=== PATIENT | female | born 1945 | race Hispanic/Latino ===

== ENCOUNTER 2017-09-25 23:12 | Emergency (ER) | payer MEDICARE, OTHER ==
[2017-09-25] MEDS ORDERED: methylPREDNISolone Sod Succ/PF 125 MG/2 ML VIAL ONE (23:26)
[2017-09-25] MEDS ORDERED: Magnesium 2 GM/NS 0.9% 100 ML 2 GM in Premix Bag 1 BAG IVPB SCH (23:30)
[2017-09-25] MEDS ORDERED: Albuterol Sulfate 2.5 mg/0.5 ml Neb ONE (23:36)
[2017-09-25] MEDS ORDERED: Albuterol Sulfate 2.5 mg/3 ml Neb ONE (23:36)
[2017-09-25 23:40] LABS: #Eosinphils 0.2 thou/uL (0.0-0.7); #Lymphocytes 1.8 thou/uL (1.20-3.40); #Monocytes 0.9 thou/uL (0.11-0.59); #Neutrophils 8.1 thou/uL (1.40-6.50); %Basophils 0.2 % (0.0-1.0); %Lymphocytes 16.4 % (21.0-51.0); %Monocytes 7.8 % (0.0-10.0); %Neutrophils 73.5 % (42.0-75.0); Hemoglobin 10.1 g/dL (12.0-16.0); Mean Corpuscular HGB CONC 31.4 g/dL (32.0-36.0); Mean Corpuscular Hemoglobin 24.3 pg (27.0-31.0); Mean Corpuscular Volume 77.2 fl (81.0-99.0); Platelet Count 235 thou/uL (130-400); RBC Distribution Width 16.2 % (11.5-14.5); Red Blood Cell (RBC) Count 4.16 mill/uL (4.20-5.40); White Blood Cell (WBC) Count 11.1 thou/uL (4.8-10.8)
--- NOTE | 2017-09-25 23:49 | RAD ---
PORTABLE CHEST: 09/25/2017 PROVIDED CLINICAL HISTORY: Shortness of breath. COMPARISON: 10/18/2013 FINDINGS: Evaluation is limited by patient body habitus. The cardiac silhouette appears enlarged. Vascular ca lcification involves the aortic arch. There is prominence of the pulmonary vasculature and pulmonary interstitium. No focal consolidation, pleural fluid, or pneumothorax apparent. IMPRESSION: Cardiomegaly and findings suggesting congestive failure. POS: LEFTY
[2017-09-26 00:05] LABS: ALT (SGPT) 13 U/L (8-55); AST (SGOT) 14 U/L (5-34); Albumin 3.6 g/dL (3.4-4.8); Alkaline Phosphatase 157 U/L (40-150); Anion Gap 13 mmol/L (10-20); BUN (Urea Nitrogen) 19 mg/dL (9.8-20.1); Bilirubin, Total 0.2 mg/dL (0.2-1.2); Calc. Creatinine Clearance 0 mL/min (70-130); Calcium 8.9 mg/dL (7.8-10.44); Carbon Dioxide 26 mmol/L (23-31); Chloride 107 mmol/L (98-107); Estimated GFR-MDRD 65; Glucose 213 mg/dL (83-110); Lipase 40 U/L (8-78); Potassium 4.2 mmol/L (3.5-5.1); Protein, Total 7.6 g/dL (6.0-8.3); Sodium 142 mmol/L (136-145)
[2017-09-26 00:09] LABS: Troponin I 0.011 ng/mL (< 0.028)
[2017-09-26 00:19] LABS: CK (CPK) 161 U/L (29-168)
[2017-09-26 00:38] LABS: Base Excess-Venous 0.1 mmol/L (0 (+/- 2.5)); Bicarbonate (HCO3v) 25.1 mmol/L (1.0-85.0); CO2 Tension (PvCO2) 41.4 mmHg (41.0-51.0); Calcium, Ionized 1.12 mmol/L (1.12-1.32); Hemoglobin - Calc 12.3 g/dL (12.0-18.0); O2 Tension (PvO2) 167.6 mmHg (35.0-45.0); Potassium 4.9 mmol/L (3.4-4.7); T. Carbon Dioxide 26.4 mmol/L (1.0-85.0); pH (Venous) 7.391 (7.35-7.45); vO2 Saturation-calc 99.5 % (94-98)
[2017-09-26 02:18] LABS: Bilirubin Negative (Negative); Blood, Urine Negative (Negative); Clarity CLEAR (Clear); Glucose, Urine (Dipstick) Negative (Negative); Leukocyte Moderate (Negative); Nitrite Negative (Negative); Protein, Urine (Dipstick) 30 mg/dL (Neg-Trace); Urobilinogen 0.2 mg/dL (0.2-1.0); pH, Urine 5.5 (5.0-9.0)
[2017-09-26 02:20] LABS: Bacteria/HPF None Seen HPF (None Seen); Hyaline Casts/LPF 0-3 HYALINE CAST LPF (0-3 Hyaline); Pathc Cast-AUWi Flag 0.72 (0-2.49); RBC/HPF 0-3 HPF (0-3); WBC/HPF 21-50 HPF (0-3)
[2017-09-26 02:25] LABS: Specific Gravity, Urine 1.057 (1.002-1.036)
--- NOTE | 2017-09-26 11:53 | CT ---
PRELIMINARY REPORT/[facility]/EMERGENTY AFTER-HOURS PROCEDURE CT Angiography Chest With Intravenous Contrast CLINICAL HISTORY: 72 years old, female; Signs and symptoms; Shortness of breath; Patient HX: 72f reports SHORTNESS OF B REATH worsening today with cough. She was at her nh and felt worse SOB, called ems. Liliya en route. Reports that she was recently released for copd. TECHNIQUE: Axial computed tomographic angiography images of the chest with intravenous contrast using pulmonary embolism protocol. MIP reconstructed images were created and reviewed. Coronal reformatted images wer e created and reviewed. COMPARISON: No relevant prior studies available. FINDINGS: This exam is limited for the diagnosis of pulmonary emboli. The majority of the contrast has already passed through the pulmonary vasculature into the aorta. Pulmonary arteries: Unremarkable. No pulmonary embolism. Aorta: No acute findings. Incidentally noted is a bovine arch. No thoracic aortic aneurysm or dissect ion. Lungs: Possible calcified granuloma or scarring in the posterior left upper lobe. No mass. Pleural space: Unremarkable. No significant effusion. No pneumothorax. Heart: Unremarkable. No cardiomegaly. No significant pericardial effusion. No evidence of RV dysfunct ion. Bones/joints: No acute fracture. No dislocation. Soft tissues: Unremarkable. Lymph nodes: Calcified lymph nodes in the mediastinum and francisco javier may be due to prior granulomatous disease or treated lymphoma. Liver: There is diffuse fatty infiltration of the liver. No masses. IMPRESSION: No acute findings seen on limited exam. Evidence of prior granulomatous disease. Fatty liver. Thank you for allowing us to participate in the care of your patient. Dictated and Authenticated by: Reynold Stevens MD 09/26/2017 1:31 AM Central Time ([place] & [place]) FINAL REPORT CT ANGIOGRAM OF THE CHEST: Date: 09/26/17 HISTORY: Worsening shortness of breath. Cough. COMPARISON: 10/18/13. TECHNIQUE: CT angiogram of the chest is performed in the axial plane. Three-dimensional reformatted images are s ubmitted for interpretation. FINDINGS: Limited evaluation of the pulmonary arterial system due to poor timing of contrast bolus. No obvious pulmonary artery embolism in the central aspect. Evaluation of the segmental and subsegmental arterie s limited. Incidental hepatomegaly is noted. POS: [facility]
== END 2017-09-26 03:25 | disposition short-term general hospital (02) ==
LOC: ERS 23:12
DX: J44.1 Chronic obstructive pulmonary disease with (acute) exacerbation (principal); I10 Essential (primary) hypertension; E11.9 Type 2 diabetes mellitus without complications; I25.10 Atherosclerotic heart disease of native coronary artery without angina pectoris; E78.00 Pure hypercholesterolemia, unspecified; I48.91 Unspecified atrial fibrillation; F32.9 Major depressive disorder, single episode, unspecified; Z79.84 Long term (current) use of oral hypoglycemic drugs; Z79.899 Other long term (current) drug therapy
CPT/HCPCS: 36415; 71045; 71275; 80053; 81003; 81015; 82330; 82435; 82553; 82803; 83690; 83880; 84132; 84295; 84443; 84484; 85014; 85025; 85379; 93005; 94640; 94644; 96365; 96366; 96374; J2930; J3475; J7611; J7620

== ENCOUNTER 2017-11-04 13:06 | Inpatient (IN) | payer MEDICARE, OTHER ==
[2017-11-04] MEDS ORDERED: Furosemide 40 MG/4 ML VIAL ONE (13:42)
[2017-11-04] MEDS ORDERED: Dexamethasone 4 mg/ml Vial ONE ×2 (13:42→13:58)
[2017-11-04 13:56] LABS: Actual Bicarbonate (HCO3a) 32.7 mEq/L (22-28); Base Excess (BEa) 3.7 mEq/L (-2.0 to +3.0); CO2 Tension 78.9 mmHg (35.0-45.0); Hematocrit-ABG 38.4 % (36.0-47.0); O2 Tension (PaO2) 64.8 mmHg (> 70.0); pH, Arterial 7.24 (7.35-7.45)
[2017-11-04 13:57] LABS: ALV-art Gradient 121.775 (0-20); Analyzer IN Cardio ER; Calcium, Ionized 1.1 mmol/L (1.12-1.30); Puncture Site RBRACH
[2017-11-04] MEDS ORDERED: Albuterol Sulfate 2.5 mg/0.5 ml Neb ONE (13:58)
[2017-11-04] MEDS ORDERED: Magnesium 2 GM/NS 0.9% 100 ML 2 GM in Sodium Chloride 0.9% 100 ML IVPB SCH (14:00)
[2017-11-04] MEDS ORDERED: Magnesium 2 GM/NS 0.9% 100 ML 2 GM in Premix Bag 1 BAG IVPB SCH (14:00)
[2017-11-04] MEDS ORDERED: Magnesium Sulfate 2 GM in Sodium Chloride 0.9% 100 ML IVPB SCH (14:00)
[2017-11-04 14:27] LABS: #Eosinphils 0.1 thou/uL (0.0-0.7); #Lymphocytes 1.4 thou/uL (1.20-3.40); #Monocytes 0.9 thou/uL (0.11-0.59); #Neutrophils 14.2 thou/uL (1.40-6.50); %Basophils 0.1 % (0.0-1.0); %Eosinophils 0.5 % (0.0-10.0); %Lymphocytes 8.6 % (21.0-51.0); %Monocytes 5.3 % (0.0-10.0); %Neutrophils 85.6 % (42.0-75.0); Hemoglobin 10.4 g/dL (12.0-16.0); Mean Corpuscular HGB CONC 29.7 g/dL (32.0-36.0); Mean Corpuscular Volume 80.6 fL (78.0-98.0); Mean Platelet Volume 7.5 fL (7.4-10.4); Platelet Count 290 thou/uL (130-400); RBC Distribution Width 19.3 % (11.5-14.5); Red Blood Cell (RBC) Count 4.33 mill/uL (4.20-5.40); White Blood Cell (WBC) Count 16.6 thou/uL (4.8-10.8)
[2017-11-04 14:40] LABS: Anisocytosis MODERATE=16-30 cells (100X) (0-5/hpf); Hypochromia SLIGHT = 6-15 cells (100X) (0-5/hpf); MDiff Complete? YES; Ovalocytes SLIGHT = 2-5 cells (100X) (0-1/hpf); PLT Morphology Comment Appears Adequate; Polychromasia MODERATE = 3-4 cells (100X) (0-2/hpf)
[2017-11-04 14:46] LABS: ALT (SGPT) 14 U/L (8-55); AST (SGOT) 20 U/L (5-34); Albumin 3.9 g/dL (3.4-4.8); Alkaline Phosphatase 114 U/L (40-150); Anion Gap 13 mmol/L (10-20); BUN (Urea Nitrogen) 18 mg/dL (9.8-20.1); Bilirubin, Total 0.3 mg/dL (0.2-1.2); CK (CPK) 102 U/L (29-168); Calc. Creatinine Clearance 0 mL/min (70-130); Carbon Dioxide 30 mmol/L (23-31); Chloride 99 mmol/L (98-107); Estimated GFR-MDRD 53; Globulin 3.8 g/dL (2.4-3.5); Glucose 201 mg/dL (83-110); Lipase 20 U/L (8-78); Protein, Total 7.7 g/dL (6.0-8.3); Sodium 137 mmol/L (136-145)
[2017-11-04 14:49] LABS: Troponin I 0.022 ng/mL (< 0.028)
--- NOTE | 2017-11-04 15:02 | RAD ---
PORTABLE CHEST: Indications: Dyspnea. Comparison: 09-25-17 FINDINGS: Limited exam due to exposure and positioning. Overlying soft tissue attenuation obscures the left kassidy g base. There is cardiomegaly and vascular congestion with evidence of interstitial edema. IMPRESSION: Very limited exam. Congestive changes are noted as described. POS: LEFTY
[2017-11-04 15:27] LABS: Bilirubin Negative (Negative); Blood, Urine Small (Negative); Clarity CLOUDY (Clear); Glucose, Urine (Dipstick) Negative (Negative); Leukocyte Negative (Negative); Nitrite Negative (Negative); Protein, Urine (Dipstick) 100 mg/dL (Neg-Trace); Specific Gravity, Urine 1.018 (1.002-1.036); Urobilinogen 0.2 mg/dL (0.2-1.0)
[2017-11-04 15:28] LABS: Bacteria/HPF Rare-Few HPF (None Seen); Pathc Cast-AUWi Flag 2.18 (0-2.49); RBC/HPF 0-3 HPF (0-3); Yeast-AUWi Flag 15.2 (0-25.0)
[2017-11-04 15:42] LABS: Crystals/HPF 2+ AMORPH URATES HPF (Negative); Hyaline Casts/LPF 7-10 HYALINE CAST LPF (0-3 Hyaline); Other Casts/LPF 4-6 COARSE GRAN LPF (0-3 Hyaline)
[2017-11-04 15:43] LABS: Renal Epithelial 0-3 HPF (0-3); Transitional Epithelial 0-3 HPF (0-3)
--- NOTE | 2017-11-04 17:24 | HP ---
CHIEF COMPLAINT: Shortness of breath. HISTORY OF PRESENT ILLNESS: This is a 72-year-old morbidly obese white female, resident of [facility]. She was brought to the ER by the nursing staff at the detention because of the wor sening shortness of breath. The patient was recently admitted for pneumonia and was undergoing treat ment. When she came to the ER, she was noted to have atrial fibrillation with rapid RVR and was acut young short of breath and her chest x-ray was done showing an evidence of severe pulmonary edema. ER vera acevedo and Mayte spoke to the family, daughter who is the medical power of energy attorney. She clearly menti oned the patient did not want to be intubated and she wanted to be DNR. The patient was acutely shor t of breath and she was very lethargic, unable to get any history from her. Most of the history is o btained from the daughter. Patient denied having any chest pain prior to this event. No history of nausea or vomiting. No diarrhea, or no constipation. No history of fever. PAST MEDICAL HISTORY: 1. Type 2 diabetes mellitus. 2. Hypertension. 3. Morbid obesity. 4. Dyslipidemia. 5. Depression. 6. Osteoarthritis. 7. History of psoriasis. 8. History of severe sleep apnea, coronary artery disease. PAST SURGICAL HISTORY: History of PTCA. SOCIAL HISTORY: The patient is not a known smoker. No history of alcohol, no history of illicit len g use. She lives at [facility]. ALLERGIES: No known drug allergies. HOME MEDICATIONS: 1. Aspirin 325 mg p.o. daily. 2. Atorvastatin 20 mg p.o. at bedtime. 3. Glipizide 10 mg p.o. in the morning. 4. Metformin 500 mg p.o. at bedtime. 5. Metoprolol 25 mg p.o. b.i.d. 6. Nitroglycerin 0.4 mg sublingual every 5 minutes. 7. Pramipexole 0.25 mg p.o. at bedtime. 8. Quinapril 5 mg p.o. daily. 9. Sertraline 50 mg p.o. daily. FAMILY HISTORY: Has been reviewed. PHYSICAL EXAMINATION: VITAL SIGNS: Blood pressures are 130/88, respiratory rate is 25, saturation is 90% on BiPAP at 50% F iO2. GENERAL: The patient is seen sitting on the bed, is acutely short of breath, is lethargic. HEENT: Atraumatic, normocephalic. PERRLA. Extraocular muscles were intact. Oral mucosa pink and m oist. CARDIOVASCULAR: S1, S2 is irregularly irregular, rapid ventricular rate. LUNGS: Bilateral air entry was reduced with wheezing and crackles noted diffusely with severe respir atory distress with accessory muscle use. ABDOMEN: Distended, nontender. No guarding, no rebound tenderness. Bowel sounds normal. MUSCULOSKELETAL: No calf tenderness. Pedal edema was noted, 2+ up to the knees. SKIN: No cyanosis, no erythema, no rash, no pallor. BIOANALYST examination could not be done. This patien t is very lethargic, unable to follow any commands. PSYCHIATRIC: No signs of suicidal ideation. No signs of depression. No signs of marilyn was noted. LABORATORY DATA: WBC 16.6, hemoglobin is 10.4, hematocrit is 34.9, platelets 290. Blood gases were done with pH of 7.2, pCO2 of 78.9, pO2 of 74.8. A high A gradient of 121. Sodium is 137, potassium 5.0, chloride is 99, BUN is 18, creatinine 1.02, blood sugar 201. BNP of 223. ASSESSMENT AND PLAN: 1. Acute respiratory failure, hypoxic and hypercapnic respiratory failure. 2. Acute obstructive sleep apnea. 3. Atrial fibrillation with rapid ventricular rate. 4. Morbid obesity. 5. Type 2 diabetes mellitus. 6. Anemia of chronic disease. 7. Possible healthcare associated pneumonia. PLAN: 1. Plan is to closely monitor this patient and after discussing with the family who prefer her to be a comfort care. We will continue to make her comfortable. We will start the patient on Lasix at 40 mg IV b.i.d. as the patient has a clear evidence of congestive heart failure and volume overload sta te. 2. The patient will be continued on the beta blockers at this time with Coreg 3.125 mg p.o. b.i.d. 3. We will put the patient on morphine 2 mg q.2h. p.r.n. for anxiety and agitation for her congestiv e heart failure. 4. The patient has evidence of possible pneumonia with elevated white count and acute shortness of b reath and with a recent pneumonia. We will start the patient on Rocephin 1 g IV daily and azithromyc in 500 mg IV daily. We will continue with nebulizer treatments and DuoNebs every 4 hours and albuter ol nebs every 2 hours p.r.n. 5. Morbid obesity. 6. Type 2 diabetes mellitus. We will continue the patient on sliding scale insulin. 7. Deep venous thrombosis prophylaxis. Heparin 5000 subcu b.i.d. Attending Physician is Leonides Roque MD. I spent 75 minutes with this patient on the day of admission and 30 minutes with the advance care plan as discussed with the daughter regarding the code status a nd the medical power of energy attorney.
[2017-11-04] MEDS ORDERED: Albuterol Sulfate 2.5 mg/3 ml Neb NEB PRN (17:42)
[2017-11-04] MEDS ORDERED: Lorazepam 2 MG/ML VIAL SLOW IVP PRN (17:42)
[2017-11-04] MEDS ORDERED: Acetaminophen 325 MG TAB PO PRN (17:42)
[2017-11-04] MEDS ORDERED: Dextrose 50% Abboject 50 ML SYRINGE SLOW IVP PRN (17:42)
[2017-11-04] MEDS ORDERED: HumaLOG 300 UNITS/3 ML VIAL SC PRN ×2 (17:42)
[2017-11-04] MEDS ORDERED: Nitroglycerin 0.4 MG TAB (25 Tab Bottle) SL PRN (17:42)
[2017-11-04] MEDS ORDERED: HYDROcodone/Acetaminophen 5/325 mg Tablet PO PRN (17:42)
[2017-11-04] MEDS ORDERED: Dextrose 5% in Water 1,000 ML IV PRN (17:42)
[2017-11-04 18:04] VITALS: BP 139/90
[2017-11-04] MEDS ORDERED: cefTRIAXone\\ROCEPHIN 1 GM in Sodium Chloride 0.9% 100 ML IVPB SCH (18:30)
[2017-11-04] MEDS ORDERED: Azithromycin 500 MG in Sodium Chloride 0.9% 250 ML 250 ML IVPB SCH ×2 (18:30→20:00)
[2017-11-04 18:44] LABS: Lactic Acid 2.2 mmol/L (0.5-2.2)
[2017-11-04 18:53] LABS: Troponin I 0.062 ng/mL (< 0.028)
[2017-11-04] MEDS ORDERED: Carvedilol 3.125 MG TAB PO SCH (21:00)
[2017-11-04] MEDS ORDERED: Atorvastatin Calcium 20 MG TAB PO SCH (21:00)
[2017-11-04] MEDS ORDERED: Pramipexole Di-HCl 0.25 MG TAB PO SCH (21:00)
[2017-11-04] MEDS: Famotidine/PF 20 mg/2ml Vial SLOW IVP SCH (21:00)
[2017-11-04] MEDS ORDERED: Docusate 100 MG CAP PO SCH (21:00)
[2017-11-04 21:04] VITALS: BMI 56.6
[2017-11-04] MEDS: Lorazepam 2 MG/ML VIAL SLOW IVP PRN (23:40)
[2017-11-04] MEDS: Acetaminophen 650 MG Suppository PR PRN (23:40)
[2017-11-05] MEDS: Lorazepam 2 MG/ML VIAL SLOW IVP PRN ×3 (03:29→11:39)
[2017-11-05] MEDS ORDERED: Furosemide 40 MG/4 ML VIAL SLOW IVP SCH (06:00)
[2017-11-05] MEDS: Acetaminophen 650 MG Suppository PR PRN (06:40)
[2017-11-05 08:54] LABS: Hemoglobin 9.7 g/dL (12.0-16.0); Mean Corpuscular HGB CONC 29.2 g/dL (32.0-36.0); Mean Corpuscular Hemoglobin 23.9 pg (27.0-31.0); Mean Corpuscular Volume 81.8 fL (78.0-98.0); Platelet Count 243 thou/uL (130-400); RBC Distribution Width 18.8 % (11.5-14.5); Red Blood Cell (RBC) Count 4.07 mill/uL (4.20-5.40); White Blood Cell (WBC) Count 16.6 thou/uL (4.8-10.8)
[2017-11-05] MEDS ORDERED: Enoxaparin Sodium 40 MG/0.4 ML SYRINGE SC SCH (09:00)
[2017-11-05] MEDS ORDERED: Lisinopril 2.5 MG TAB PO SCH (09:00)
[2017-11-05 09:12] LABS: Anion Gap 14 mmol/L (10-20); BUN (Urea Nitrogen) 27 mg/dL (9.8-20.1); Calc. Creatinine Clearance 72 mL/min (70-130); Calcium 8.6 mg/dL (7.8-10.44); Carbon Dioxide 31 mmol/L (23-31); Chloride 99 mmol/L (98-107); Estimated GFR-MDRD 36; Glucose 223 mg/dL (83-110); Potassium 6.5 mmol/L (3.5-5.1); Sodium 137 mmol/L (136-145)
[2017-11-05 09:33] LABS: Band 3 % (5-11); Hypochromia MODERATE=16-30 cells (100X) (0-5/hpf); Lymphocytes 1 % (21-51); MDiff Complete? YES; Monocytes 4 % (0-10); Neutrophil 92 % (42-75); Ovalocytes SLIGHT = 2-5 cells (100X) (0-1/hpf); PLT Morphology Comment Appears Adequate; Polychromasia SLIGHT = 2-3 cells (100X) (0-2/hpf)
[2017-11-05 10:00] VITALS: TEMP 98.2
[2017-11-05] MEDS: Famotidine/PF 20 mg/2ml Vial SLOW IVP SCH (10:02)
--- NOTE | 2017-11-05 17:18 | DIS ---
DATE OF ADMISSION: 11/04/2017 DATE OF DISCHARGE: 11/05/2017 ADMITTING DIAGNOSIS: Acute hypoxic respiratory failure. DISCHARGE DIAGNOSES: Acute hypoxic respiratory failure. SECONDARY DIAGNOSES: 1. Morbid obesity. 2. Obstructive sleep apnea. 3. Type 2 diabetes mellitus. 4. Pneumonia, bilateral. CONSULTANTS: Involved in the care is home hospice. HISTORY OF PRESENT ILLNESS AND HOSPITAL COURSE: In brief, this is a 72-year-old morbidly obese white female who presented to the hospital from residential with a sudden onset of shortness of breath wo rsening and patient was on BiPAP. She did not respond well on the BiPAP. After discussing with the family, the family chose to go for palliative care with no response on BiPAP for more than 24 hours. The family decided to go for hospice. The patient was discharged to hospice and had a poor prognosi s. PHYSICAL EXAMINATION: VITAL SIGNS: Blood pressure is on the day of discharge are 100/80, heart rate is 98, respiratory rat e is 28, saturation is 95% on BiPAP. HEENT: Atraumatic, normocephalic, PERRLA. Extraocular muscles were intact. CARDIOVASCULAR: S1, S2, normal, tachycardia. LUNGS: Bilateral air entry was reduced with increased wheezing and crackles noted. ABDOMEN: Distended, nontender, no guarding, no rebound tenderness. DISCHARGE MEDICATIONS: 1. Aspirin. 2. Atorvastatin. 3. Glipizide. 4. Metformin. 5. Metoprolol 25 mg p.o. b.i.d. 6. Nitroglycerin. 7. Pramipexole 0.25 mg p.o. at bedtime. 8. Quinapril 5 mg p.o. daily. 9. Sertraline 50 mg p.o. daily. DISCHARGE INSTRUCTIONS: As per hospice care. I spent less than 30 minutes of stay on discharge.
--- NOTE | 2017-11-09 11:47 | EKG ---
Test Reason : SOB Blood Pressure : / mmHG Vent. Rate : 098 BPM Atrial Rate : 098 BPM P-R Int : 166 ms QRS Dur : 076 ms QT Int : 336 ms P-R-T Axes : 074 -03 043 degrees QTc Int : 428 ms Normal sinus rhythm with sinus arrhythmia Normal ECG Confirmed by TONG MILLER, NAMRATA ([id number]), food editor DENVER GALICIA ([id number]) on 11/09/2017 11:46:51 AM Referred By: Confirmed By:NAMRATA FORTUNE MD
--- NOTE | 2017-11-20 09:14 | PQF ---
TINO SWANSON MOHAN [id number] CLINICAL DOCUMENTATION CLARIFICATION FORM: POST DISCHARGE Addendum to original discharge summary date: ____ Late entry note date: __ DATE: 11/20/2017 ATTN: Dr Mya Coyle Please exercise your independent, professional judgment in responding to the clarification form. Clinical indicators are provided on the bottom of this form for your review Please check appropriate box(s): HEART FAILURE: A. TYPE: [ ] Systolic / HFrEF [ ] Diastolic / HFpEF [ ] Combined Systolic / Diastolic B. ACUITY [ ] Acute [ ] Acute on Chronic [ ] Chronic [ ] Other diagnosis [ ] Unable to determine For continuity of documentation, please document condition throughout progress notes and discharge summary. Thank You. CLINICAL INDICATORS - SIGNS / SYMPTOMS / LAB ED: Acute CHF Labs: 7-2 BNP 223.7 7-2 CXR: Cardiomegaly and vascular congestion w/ evidence of interstitial edema. H&P: 2+ edema to knees Will start pt on Lasix at 40 mg IV bid as the patient has a clear evidence of congestive heart failure and volume overload state Continue beta blockers a this time w/ Coreg 3.125 mg po bid Morphine 2mg q2h prn for anxiety and agitation for her CHF (This form is maintained as a part of the permanent medical record) 2014 [employer]. All Rights Reserved [facility]
== END 2017-11-05 11:54 | disposition hospice, inpatient (51) | DRG 189 ==
LOC: ERS 13:06 → ONC 14:50
PROVIDERS: ADMIT Family Medicine; ATTEND Family Medicine
DX: J96.01 Acute respiratory failure with hypoxia (principal); J18.9 Pneumonia, unspecified organism; J44.0 Chronic obstructive pulmonary disease with (acute) lower respiratory infection; Z68.43 Body mass index [BMI] 50.0-59.9, adult; J96.02 Acute respiratory failure with hypercapnia; G47.33 Obstructive sleep apnea (adult) (pediatric); Z66 Do not resuscitate; I48.91 Unspecified atrial fibrillation; E11.9 Type 2 diabetes mellitus without complications; Z79.82 Long term (current) use of aspirin; E78.5 Hyperlipidemia, unspecified; F32.9 Major depressive disorder, single episode, unspecified; M19.90 Unspecified osteoarthritis, unspecified site; I25.10 Atherosclerotic heart disease of native coronary artery without angina pectoris; I11.0 Hypertensive heart disease with heart failure; I50.9 Heart failure, unspecified; E66.01 Morbid (severe) obesity due to excess calories
CPT/HCPCS: 36415; 51702; 71045; 80048; 80053; 81003; 81015; 82550; 82553; 82805; 83605; 83690; 83880; 84484; 85025; 87040; 93005; 94640; 94660; 96365; 96366; 96375; A4216; J0456; J0696; J1100; J1940; J2060; J2270; J3475; J7050; J7611; J7620

== ENCOUNTER 2017-11-05 11:55 | Inpatient (IN) | payer OTHER ==
[2017-11-05 12:10] VITALS: BMI 57.7
[2017-11-05] MEDS ORDERED: Scopolamine 1.5 mg/72 hour Patch TOP PRN (13:09)
[2017-11-05] MEDS: Lorazepam 2 MG/ML VIAL SLOW IVP SCH ×5 (14:20→22:02)
[2017-11-05] MEDS ORDERED: Lorazepam 2 MG/ML VIAL SLOW IVP PRN (16:20)
[2017-11-05] MEDS ORDERED: Lorazepam 2 MG/ML VIAL SLOW IVP SCH (17:00)
[2017-11-05 20:06] VITALS: BP 147/68; TEMP 99.3
[2017-11-06] MEDS: Lorazepam 2 MG/ML VIAL SLOW IVP SCH (00:05)
--- NOTE | 2017-11-07 14:00 | DIS ---
SUMMARY HISTORY OF PRESENT ILLNESS: This was a very pleasant 72-year-old female who was admitted for morbid obesity and respiratory failure with bilateral pneumonia. The patient's family decided to continue h ospice care as the patient's prognosis was extremely poor. The patient on 11/06/2017 at 004 3. Family was aware of the situation and have discussed the situation with the patient's family. [place] [facility] [place]
== END 2017-11-06 00:35 | disposition expired | DRG 951 ==
LOC: ONC 11:55
PROVIDERS: ADMIT Internal Medicine Nephrology; ATTEND Internal Medicine Nephrology
PROC: 5A09357 Assistance with Respiratory Ventilation, Less than 24 Consecutive Hours, Continuous Positive Airway Pressure (ICD-10-PCS; principal; 2017-11-05)
DX: Z51.5 Encounter for palliative care (principal); Z66 Do not resuscitate
CPT/HCPCS: J2060; J2270